=== PATIENT | female | born 1990 ===

== ENCOUNTER 2022-07-05 17:29 | Emergency (ER) | payer MEDICAID | END 2022-07-05 19:18 | disposition home or self-care (01) | LOC: DL.ED 17:29 | DX: S52.124A Nondisplaced fracture of head of right radius, initial encounter for closed fracture (principal); S42.491A Other displaced fracture of lower end of right humerus, initial encounter for closed fracture; Z88.2 Allergy status to sulfonamides; W00.0XXA Fall on same level due to ice and snow, initial encounter | CPT/HCPCS: 29125; 73080-RT; 73090-RT; 73200-RT; 99282; 99284-25 ==